=== PATIENT | female | born 1960 | race Caucasian/White ===

== ENCOUNTER 2019-08-28 11:18 | Inpatient (IN) ==
[2019-08-28] MEDS ORDERED: ZOFRAN IV ONE (11:23)
[2019-08-28] MEDS ORDERED: TORADOL IV ONE (11:23)
--- NOTE | 2019-08-28 11:52 | PROVIDER DOCUMENTATION ---
This chart was entered by Reva Bill Scribe, acting as scribe for Erlin Fraire MD. HPI-Female /OB/Breast - General Chief Complaint: Flank Pain Stated Complaint: R flank pain Time Seen by Provider: 08/28/19 11:23 Source: reports: patient Allergies/Adverse Reactions: Patient Allergies Allergy/AdvReac Type Severity Reaction Status Date / Time barium iodide [Barium Iodide] Allergy Mild RASH Verified 06/02/18 03:46 bismuth subsalicylate Allergy Mild RASH Verified 06/02/18 03:46 codeine [Codeine] Allergy Mild RASH Verified 06/02/18 03:46 Penicillins Allergy Mild RASH Verified 06/02/18 03:46 Home Medications: Home Medication List Medication Instructions Recorded Confirmed Last Taken Type Gabapentin [Gralise] 600 mg PO TID 07/29/12 08/28/19 11/11/14 History Omeprazole [Prilosec] 20 mg PO DAILY 07/29/12 08/28/19 11/11/14 History Aspirin 81 mg PO DAILY 07/31/12 08/28/19 11/11/14 Rx Insulin Aspart [Novolog] 25 units SQ AC 03/17/18 08/28/19 Unknown History Insulin Glargine [Lantus] 45 units SQ BID 03/17/18 08/28/19 Unknown History Lisinopril 10 mg PO DAILY 03/17/18 08/28/19 Unknown History Oxybutynin [Ditropan] 10 mg PO DAILY 03/17/18 08/28/19 Unknown History Simvastatin 40 mg PO HS 03/17/18 08/28/19 Unknown History Acetaminophen [Arthritis Pain] 1 tab PO ORDERED PRN 08/28/19 08/28/19 Unknown History Diphenhydramine HCl [Allergy 2 tab PO BID 08/28/19 08/28/19 Unknown History Relief] - History of Present Illness-Female /OB Nature of Presenting Problem: 59yof presents to ED cc sharp right flank pain that radiates to right groin, decreased urine and dark urine since 9:30am. Pt rates pain /. Pt has hx of Peylonephritis, COPD, HTN, DM, chronic chest apin and hyperlipidemia. Pt denies N/V/D. Pt is afebrile upon exam. Pt also c/o cough to nursing staff. Does patient report she is ?: No Location of complaint: reports: right flank Radiation: reports: groin (right) Quality of Pain: reports: sharp Severity in ED: reports: moderate Onset/Duration: reports: just prior to arrival Timing: reports: still present Context/Activities at Onset: reports: light activity Vaginal Symptoms: reports: no symptoms Vaginal Bleeding Amount: None Urinary Symptoms: reports: retention Related Symptoms: reports: no symptoms Modifying Factors: worse with: movement, palpation, urinating Similar Symptoms Previously?: No Recently seen or treated by another doctor?: No Review of Systems - Adult - REVIEW OF SYSTEMS - ADULT Constitutional: reports: see HPI. denies: chills, fever, fatique Eyes: reports: no symptoms reported Ears, Nose, Mouth & Throat: reports: no symptoms reported Cardiovascular: reports: no symptoms reported Respiratory: reports: see HPI, cough Gastrointestinal: reports: see HPI. denies: diarrhea, nausea, vomiting Genitourinary: reports: see HPI, flank pain (right), urinary retention. denies: hematuria Musculoskeletal: reports: no symptoms reported Integumentary: reports: no symptoms reported Neurological: reports: no symptoms reported Psychiatric: reports: no symptoms reported Endocrine: reports: no symptoms reported Hematologic/Lymphatic: reports: no symptoms reported Allergic/Immunologic: reports: no symptoms reported All Other Systems: Reviewed and Negative Past History - Adult - PAST MEDICAL HISTORY-ADULT Review of Records: reports: Nursing Assessment Review, Medications Reviewed, Social history reviewed & non-contributory. Major Childhood Illnesses: reports: denies history Cardiovascular: reports: HTN, hyperlipidemia Respiratory: reports: COPD Gastrointestinal: reports: GERD Obstetrical/Gynecological: reports: denies history Genitourinary: reports: denies history Musculoskeletal: reports: arthritis Neurological: reports: TIA, other (neuropathy) Psychiatric: reports: denies history Endocrine/Immune: reports: Diabetes Other Conditions: reports: denies history - PRIOR SURGERIES/PROCEDURES Surgical/Procedure History: reports: appendectomy, hysterectomy, (x3), orthopedic (extremity) (right hand) - IMMUNIZATION STATUS Childhood Immunizations: See Nurse Assessment Flu Vaccine: See Nurse Assessment - FAMILY HISTORY Family History: reviewed, not pertinent - SOCIAL HISTORY Smoking: cigarettes, less than 1 pack/day Provider spent 3-5 mins advising pt. on dangers of tobacco.: Discussed manners to quit use, and f/u contacts for add'l counseling. Physical Exam-General - PHYSICAL EXAM-ADULT Initial Vital Signs Reviewed: Yes - CONSTITUTIONAL General Appearance: appears well, alert. negative: anxious, combative - EYES Eyes: PERRL/EOMI, pink conjunctivae - HEAD, EARS, NOSE, MOUTH & THROAT HENMT: normocephalic/atraumatic, moist mucous membranes. negative: angioedema - NECK Neck: normal inspection - RESPIRATORY Respiratory: chest non-tender, lungs clear, normal breath sounds. negative: rhonchi, stridor - CARDIOVASCULAR Cardiovascular: normal peripheral pulses, regular rate, rhythm, no edema. negative: bradycardia, tachycardia - GASTROINTESTINAL (ABDOMEN) Abdominal Exam: normal bowel sounds, soft, tenderness (RLQ,mild). negative: rigid, rebound - MUSCULOSKELETAL Back Exam: no vertebral tenderness, CVA tenderness (right) Extremity: normal range of motion, normal inspection, normal capillary refill. negative: deformity - SKIN Integumentary: normal color. negative: diaphoresis, jaundice - PSYCHIATRIC Psych/Mental Status: normal mood/affect, oriented x 3. negative: anxious, disheveled Progress - PLAN OF CARE/RESULTS Progress/Plan/Lab Results: Vital Signs - 8 hr 08/28/19 11:23 08/28/19 11:51 08/28/19 12:39 Temperature 98.9 F Pulse Rate 62 60 Respiratory Rate 22 18 Blood Pressure 175/80 205/114 163/80 O2 Sat by Pulse Oximetry 94 L 96 96 08/28/19 13:01 08/28/19 13:14 08/28/19 13:31 Temperature Pulse Rate 61 65 Respiratory Rate 18 18 Blood Pressure 143/71 145/101 O2 Sat by Pulse Oximetry 97 96 98 08/28/19 14:01 Temperature Pulse Rate 67 Respiratory Rate 19 Blood Pressure 134/70 O2 Sat by Pulse Oximetry 96 Laboratory Results - last 24 hr 08/28/19 08/28/19 08/28/19 11:41 11:41 11:41 WBC 10.76 RBC 5.14 Hgb 14.9 Hct 45.0 MCV 87.5 MCH 29.0 MCHC 33.1 RDW Std Deviation 12.5 Plt Count 248 MPV 11.7 H Immature Gran % (Auto) 0.0 Neut % (Auto) 68.3 Lymph % (Auto) 22.3 [place] % (Auto) 7.3 Eos % (Auto) 1.6 Baso % (Auto) 0.5 Immature Gran # (Auto) 0.00 Neut # (Auto) 7.35 H Lymph # (Auto) 2.40 [place] # (Auto) 0.79 H Eos # (Auto) 0.17 Baso # (Auto) 0.05 PT 12.8 INR 0.95 PTT (Actin FS) 29.3 Specimen Type Sample Site pH pCO2 pO2 HCO3 Base Excess Oxyhemoglobin ABG O2 Sat (Calculated) ABG O2 Saturation ABG Carboxyhemoglobin ABG Methemoglobin Robert Test A-a O2 Difference Total Hemoglobin Lactate Blood Gas Modality FiO2 % Sodium 129 L Potassium 4.4 Chloride 91 L Carbon Dioxide 28 Anion Gap 10 BUN 9 Creatinine 0.8 Estimated GFR/1.73 m2 > 60 BUN/Creatinine Ratio 11 Glucose 348 H Calculated Osmolality 271 Calcium 9.3 Total Bilirubin 0.16 L AST 14 ALT 13 Alkaline Phosphatase 118 H Creatine Kinase 51 Troponin T Total Protein 6.7 Albumin 4.1 Globulin 2.6 Albumin/Globulin Ratio 1.6 Plasma Lactate Urine Source Urine Color Urine Turbidity Urine pH Ur Specific [place] Urine Protein Ur Glucose (Stick) Ur Ketones (Stick) Urine Blood Urine Nitrite Urine Bilirubin Urobilinogen Dipstick Urine Leukocytes Urine WBC (Auto) Urine RBC (Auto) U Epithel Cells (Auto) Urine Bacteria (Auto) Urine Crystals Small Round Cells Urine Casts Urine Yeast-like Cells 08/28/19 08/28/19 08/28/19 11:41 11:41 11:55 WBC RBC Hgb Hct MCV MCH MCHC RDW Std Deviation Plt Count MPV Immature Gran % (Auto) Neut % (Auto) Lymph % (Auto) [place] % (Auto) Eos % (Auto) Baso % (Auto) Immature Gran # (Auto) Neut # (Auto) Lymph # (Auto) [place] # (Auto) Eos # (Auto) Baso # (Auto) PT INR PTT (Actin FS) Specimen Type Sample Site pH pCO2 pO2 HCO3 Base Excess Oxyhemoglobin ABG O2 Sat (Calculated) ABG O2 Saturation ABG Carboxyhemoglobin ABG Methemoglobin Robert Test A-a O2 Difference Total Hemoglobin Lactate Blood Gas Modality FiO2 % Sodium Potassium Chloride Carbon Dioxide Anion Gap BUN Creatinine Estimated GFR/1.73 m2 BUN/Creatinine Ratio Glucose Calculated Osmolality Calcium Total Bilirubin AST ALT Alkaline Phosphatase Creatine Kinase Troponin T < 0.010 Total Protein Albumin Globulin Albumin/Globulin Ratio Plasma Lactate 1.4 Urine Source CLEAN CATCH Urine Color ORANGE Urine Turbidity TURBID Urine pH 5.5 Ur Specific [place] 1.017 Urine Protein 50 A Ur Glucose (Stick) >1000 A Ur Ketones (Stick) NEGATIVE Urine Blood SMALL A Urine Nitrite POSITIVE A Urine Bilirubin NEGATIVE Urobilinogen Dipstick NORMAL Urine Leukocytes LARGE A Urine WBC (Auto) TNTC A Urine RBC (Auto) <10 U Epithel Cells (Auto) <10 Urine Bacteria (Auto) 4+ Urine Crystals NONE SEEN Small Round Cells NONE SEEN Urine Casts NONE SEEN Urine Yeast-like Cells 08/28/19 08/28/19 13:10 14:22 WBC RBC Hgb Hct MCV MCH MCHC RDW Std Deviation Plt Count MPV Immature Gran % (Auto) Neut % (Auto) Lymph % (Auto) [place] % (Auto) Eos % (Auto) Baso % (Auto) Immature Gran # (Auto) Neut # (Auto) Lymph # (Auto) [place] # (Auto) Eos # (Auto) Baso # (Auto) PT INR PTT (Actin FS) Specimen Type ARTERIAL Sample Site R BRACHIAL pH 7.38 pCO2 43 pO2 80 HCO3 24.6 Base Excess 0.0 Oxyhemoglobin 87.6 L* ABG O2 Sat (Calculated) 18.9 ABG O2 Saturation 97.1 ABG Carboxyhemoglobin 8.10 H* ABG Methemoglobin 1.6 H Robert Test NO A-a O2 Difference 16.0 Total Hemoglobin 15.3 Lactate 1.10 Blood Gas Modality ROOM AIR FiO2 % 21.0 Sodium Potassium Chloride Carbon Dioxide Anion Gap BUN Creatinine Estimated GFR/1.73 m2 BUN/Creatinine Ratio Glucose Calculated Osmolality Calcium Total Bilirubin AST ALT Alkaline Phosphatase Creatine Kinase Troponin T Total Protein Albumin Globulin Albumin/Globulin Ratio Plasma Lactate 1.2 Urine Source Urine Color Urine Turbidity Urine pH Ur Specific [place] Urine Protein Ur Glucose (Stick) Ur Ketones (Stick) Urine Blood Urine Nitrite Urine Bilirubin Urobilinogen Dipstick Urine Leukocytes Urine WBC (Auto) Urine RBC (Auto) U Epithel Cells (Auto) Urine Bacteria (Auto) Urine Crystals Small Round Cells Urine Casts Urine Yeast-like Cells Orders Category Date Time Status Cardiac Monitoring DIRECTED Care 08/28/19 11:24 Active IV Insertion ORDERED Care 08/28/19 11:24 Completed Notify MD of + Sepsis Screen NOW Care 08/28/19 11:24 Active CHEST-PORTABLE [RAD] Stat Exams 08/28/19 13:[address] RENAL STONE SEARCH [CT] Stat Exams 08/28/19 11:36 Completed ABG [RESP] Routine Lab 08/28/19 13:10 Completed BLOOD CULTURE [BLDCUL] Stat Lab 08/28/19 12:36 Results CBC WITH DIFF [HEME] Stat Lab 08/28/19 11:41 Completed CK PROFILE [SP CHEM] Stat Lab 08/28/19 11:41 Completed COMPREHENSIVE METABOLIC PANEL [CHEM] Stat Lab 08/28/19 11:41 Completed LACTATE, PLASMA [CHEM] Lab 08/28/19 14:22 Completed LACTATE, PLASMA [CHEM] Lab 08/28/19 17:30 Uncollected LACTATE, PLASMA [CHEM] Q3H Lab 08/28/19 11:41 Completed PROTIME WITH INR [COAG] Stat Lab 08/28/19 11:41 Completed PTT [COAG] Stat Lab 08/28/19 11:41 Completed TROPONIN T Stat Lab 08/28/19 11:41 Completed URINALYSIS W/POSS RFLX CULT [URINALYSIS] Stat Lab 08/28/19 11:55 Completed URINE CULTURE [RM] Routine Lab 08/28/19 11:55 Received URINE MANUAL MICROSCOPIC [URINALYSIS] Stat Lab 08/28/19 11:55 Completed Ketorolac [Toradol] Med 08/28/19 11:23 Discontinued 30 mg IV NOW ONE Levofloxacin 750 mg/D5w [Levaquin 750 mg/D5w] Med 08/28/19 12:50 Discontinued 750 mg in 150 ml IV NOW Ondansetron [Zofran] Med 08/28/19 11:23 Discontinued 4 mg IV STAT ONE Oxygen Device Stat Oth 08/28/19 11:24 Completed Transfer/Admit Order [TRANSFER] Routine Transfer 08/28/19 14:28 Ordered Result Diagrams: 08/28/19 11:41 08/28/19 11:41 - REASSESSMENT Reassessment #1 Time Reassessed: 13:00 Status: worsening Reassessment Comment: pateint noted to have apneic episodes with sats in 70's when sleeping - CT/MRI 1 CT Study: Renal Stone Impression: See EMR Report (IMPRESSION: 1.Moderate to prominent right-sided hy dronephrosis without a ureteral stone. This may be secondary to a recently passed stone. Short-term follow-up or urological consult recommended. 2.Constipation 3.Hysterectomy This exam was performed using automated exposure control, adjustment of mA or kV according to patient size, and/or use of i terative reconstruction technique. Electronically signed by Casper Ballesteros 08/28/2019 12:24 PM) - CONSULTS/PCP/HOSPITALIST Notification #1 *Consult/PCP/Hospitalist*: Ban BA, hospitalist service Time Discussed: 14:15 Reason/Comments: Dr. Martinez Consult Disposition: Admit Departure - Departure Date of Disposition Decision: 08/28/19 Time of Disposition Decision: 14:55 DIAGNOSIS: Apnea, Hypoxemia, COPD (chronic obstructive pulmonary disease) Urinary tract infection Qualifiers: Urinary tract infection type: site unspecified Hematuria presence: with hematuria Qualified Code(s): N39.0 - Urinary tract infection, site not specified; R31.9 - Hematuria, unspecified Disposition: ADMITTED INPATIENT 09 Certified Medical Emergency: Emergent Condition: Stable - Critical Care Note This patient required my direct & personal management of CC.: No Attestation - Physician/ ROXY Attestation Patient care was provided by Advanced Practice Provider:: No The physician spent face to face time with patient:: Yes Advanced Practice Provider documentation review:: Supervising physician onsite and consulted in the evaluation and care of this patient. The physician did have a face to face encounter with the patient. This chart was documented by the indicated scribe, (Reva Bill Scribe) and accurately reflects the services I performed and decisions made by me, Erlin Fraire MD, as attested by the provider's signature.
[2019-08-28 12:03] LABS: BASO# 0.05 X1000 (0.0-0.2); BASO% 0.5 % (0.0-0.8); EOS# 0.17 X1000 (0.0-0.7); EOS% 1.6 % (0.0-10.0); HEMOGLOBIN 14.9 g/dL (12.0-16.0); LYMPH% 22.3 % (20.5-51.1); MCHC 33.1 g/dL (33-37); MCV 87.5 FL (81-99); MONO# 0.79 X1000 (0.11-0.59); MONO% 7.3 % (1.7-9.3); MPV 11.7 FL (7.4-10.4); NEUT# 7.35 X1000 (1.4-6.5); NEUT% 68.3 % (42.2-75.2); PLT 248 X1000 (130-400); RBC 5.14 XMIL (4.2-5.4); RDW 12.5 % (11.5-14.5); WBC 10.76 X1000 (4.8-10.8)
[2019-08-28 12:10] LABS: INR 0.95; PROTIME 12.8 Seconds (11.0-16.0)
[2019-08-28 12:11] LABS: PTT 29.3 Seconds (22.3-41.8)
[2019-08-28 12:20] LABS: URINE SOURCE CLEAN CATCH
[2019-08-28 12:23] LABS: AGAP 10; ALB/GLOB RATIO 1.6; ALBUMIN 4.1 g/dL (3.5-5.0); ALKALINE PHOSPHATASE 118 U/L (32-104); BUN 9 mg/dL (8-22); CALCIUM 9.3 mg/dL (8.8-10.2); CHLORIDE 91 mmol/L (98-107); CK PROFILE 51 U/L (24-173); COSMO 271; CREATININE 0.8 mg/dL (0.5-0.9); ESTIMATED GFR > 60; GLUCOSE 348 mg/dL (70-104); GOT 14 U/L (10-30); GPT 13 U/L (10-36); POTASSIUM 4.4 mmol/L (3.5-5.1); SODIUM 129 mmol/L (136-145); TCO2 28 mmol/L (25-35); TOTAL BILIRUBIN 0.16 mg/dL (0.20-1.00); TOTAL PROTEIN 6.7 g/dL (6.3-8.3)
[2019-08-28 12:26] LABS: BILIRUBIN URINE NEGATIVE (NEGATIVE); BLOOD URINE SMALL (NEGATIVE); COLOR ORANGE; GLUCOSE URINE >1000 mg/dL (NEGATIVE); KETONE URINE NEGATIVE (NEGATIVE); LEUKOCYTES URINE LARGE (NEGATIVE); NITRITE URINE POSITIVE (NEGATIVE); PH URINE 5.5; PROTEIN URINE 50 mg/dL (NEGATIVE); SP GRAVITY URINE 1.017; TURBIDITY URINE TURBID (CLEAR); UROBILINOGEN URINE NORMAL (NORMAL)
--- NOTE | 2019-08-28 12:26 | Diag Imaging Result Doc PS360 ---
EXAM: CT RENAL STONE SEARCH HISTORY: right flank pain TECHNIQUE: CT abdomen and pelvis without contrast COMPARISON: None. FINDINGS: No calcified gallstones or adjacent inflammation. No focal hepatic abnormality identified on this noncontrasted exam. Normal spleen, pancreas, and adrenal glands. No left renal stone or left-sided hydronephrosis. Moderate to prominent right-sided hydronephrosis. No ureteral stone identified. No aortic aneurysm. Moderate to prominent atherosclerosis. There is stool throughout the colon. No inflammation about the cecum. No ascites. The uterus has been removed. Urinary bladder is not distended. There are multiple pelvic phleboliths. IMPRESSION: 1.Moderate to prominent right-sided hydronephrosis without a ureteral stone. This may be secondary to a recently passed stone. Short-term follow-up or urological consult recommended. 2.Constipation 3.Hysterectomy This exam was performed using automated exposure control, adjustment of mA or kV according to patient size, and/or use of iterative reconstruction technique. Electronically signed by Casper Ballesteros 08/28/2019 12:24 PM
[2019-08-28 12:37] LABS: UR EPITHELIAL CELLS <10 /HPF (<10); URINE BACTERIA 4+ /HPF; URINE RBC <10 /HPF (<10); URINE WBC TNTC /HPF (<10)
[2019-08-28 12:39] LABS: URINE CASTS NONE SEEN; URINE CRYSTALS NONE SEEN; URINE SMALL ROUND CELLS NONE SEEN
[2019-08-28] MEDS ORDERED: LEVAQUIN 750 MG/D5W 750 MG/150 ML IVPB IV ONE (12:50)
[2019-08-28 13:15] LABS: ALLEN TEST NO; BLOOD TYPE ARTERIAL; HCO3-(ACT) 24.6 mmoll (20.0-26.0); METHB 1.6 % (0.0-1.5); O2(CT) 18.9 mL/dL (15.0-23.0); PCO2(98.6) 43 mmHg (35-45); PO2(98.6) 80 mmHg (60-100); SAMPLE BLOOD; SAO2 97.1 % (95.0-100.0); THB 15.3 g/dL (11.5-17.4); pH(98.6) 7.38 (7.35-7.45)
[2019-08-28 13:20] LABS: MODALITY ROOM AIR; O2HB 87.6 % (95.0-99.0)
--- NOTE | 2019-08-28 13:21 | Diag Imaging Result Doc PS360 ---
EXAM: CHEST-PORTABLE 08/28/2019 HISTORY: sob TECHNIQUE: AP portable at 1313 COMMENT: There is no evidence of acute cardiac or pulmonary disease. Compared to 07/21/2019 there has been no significant change. IMPRESSION: No evidence of acute disease. Electronically signed by Kleber Loyola 08/28/2019 1:19 PM
[2019-08-28] MEDS ORDERED: TYLENOL PO PRN (15:12)
[2019-08-28] MEDS ORDERED: TYLENOL ARTHRITIS PO PRN (15:12)
[2019-08-28] MEDS ORDERED: ULTRAM PO PRN (15:29)
[2019-08-28] MEDS: NS 1,000 ML IV SCH ×2 (16:09→23:41)
[2019-08-28] MEDS: HUMALOG SUBQ SCH ×3 (17:28→22:51)
[2019-08-28] MEDS ORDERED: NORCO-5 PO PRN (17:36)
[2019-08-28] MEDS: MORPHINE IV PRN (18:43)
[2019-08-28] MEDS ORDERED: [UNRECOGNIZED DRUG - REMARK] PO SCH (21:00)
--- NOTE | 2019-08-28 21:35 | HISTORY AND PHYSICAL ---
PRIMARY CARE PHYSICIAN: Dr. Chica Davies. CHIEF COMPLAINT: Right flank pain radiating to the right groin with decreased urine output and dark urine that began at 9:30 this morning as a sudden onset. HISTORY OF PRESENTING ILLNESS: This is a 59-year-old female who presents to [facility], with complaints of sharp right flank pain that radiates to the right groin with decreased urine and dark urine that began around 9:30 a.m. She rated the pain a 10/10. Denied any nausea, vomiting, diarrhea. Her workup showed a sodium of 129 and glucose of 348, but she is a known diabetic type 2. We did a renal CT that showed a moderate to prominent right-sided hydronephrosis without a ureteral stone that may be secondary to a recently passed stone. Her urinalysis showed positive nitrites, sij-xlsmbcek-ss-count white blood cells and 4+ bacteria, and so she will be admitted for further evaluation and treatment. PAST MEDICAL HISTORY: Hypertension, hyperlipidemia, diabetes type 2, osteoarthritis and GERD. PAST SURGICAL HISTORY: , hysterectomy and right hand 3rd digit surgery. FAMILY HISTORY: Her father had diabetes and CHF and in his 70s. Mother has COPD. SOCIAL HISTORY: She currently lives in an assisted living facility. Smokes a half a pack of cigarettes a day and has done so for 30+ years and denies any alcohol or illicit drug use. ALLERGIES: Barium, bismuth, codeine and penicillin. HOME MEDICATIONS: She takes Tylenol Arthritis 650 mg as directed p.r.n., aspirin 81 mg p.o. daily, diphenhydramine 25 mg 2 tablets p.o. b.i.d., Relief 600 mg p.o. t.i.d., NovoLog 25 units subcutaneously before meals, Lantus 45 units subcutaneous b.i.d., lisinopril 10 mg p.o. daily, Prilosec 20 mg p.o. daily, Ditropan 10 mg p.o. daily and simvastatin 40 mg p.o. at bedtime. LABORATORY DATA: Showed a white blood cell count of 10.76, hemoglobin 14.9, hematocrit 45, platelets 248. PT and INR 12.8 and 0.95. ABG showed a pH of 7.38, pCO2 of 43, pO2 of 80, and bicarb of 24.6, and this is on room air. Sodium 129, potassium 4.4, chloride 91, CO2 28, BUN of 9, creatinine 0.8, glucose 348. Cardiac enzyme is negative, plasma lactate of 1.4. Urinalysis showed positive nitrites, afa-jtzowoig-km-count white blood cells, 4+ bacteria. CT of renal showed moderate to prominent right-sided hydronephrosis without a ureteral stone (may be secondary to a recently passed stone with short-term follow-up or urological consult recommended), constipation and hysterectomy. Chest x-ray showed no evidence of acute disease. REVIEW OF SYSTEMS: She denied any fever, chills, blurred vision, dizziness, chest pain, coughing, or shortness of breath. She had right flank pain radiating to her right groin, but denied any abdominal pain, nausea, vomiting, constipation, diarrhea, or burning or hurting with urination. PHYSICAL EXAMINATION: VITAL SIGNS: On arrival she had a temperature of 98.9, pulse 62, respirations 22, blood pressure 175/80, saturating 94% on room air. It is noted per nursing documentation that she received Toradol 30 mg IV, and she was noted to have dropped her O2 saturation between 85% and 89% on room air. Then about 2 or 3 minutes later, her saturation went down to 76% on room air, and that is when we had ordered some ABGs and O2, and she is currently saturating 95% to 97% on 3 L. GENERAL: This is a 59-year-old female who is lying in the bed and answers questions appropriately. HEENT: Normocephalic, atraumatic. Normal ENT inspection. Oropharynx and nares are clear. EYES: Pupils are equal, round, reactive to light and accommodation. Extraocular movements are intact. NECK: Normal inspection, normal range of motion. LUNGS: Clear to auscultation bilaterally with equal lung expansion and chest wall movement. HEART: Regular rate and rhythm. No murmurs, rubs, or gallops. ABDOMEN: Soft, nontender, nondistended. Bowel sounds are present x4 quadrants. She does have some right CVA tenderness to palpation. NEUROLOGICAL: The cranial nerves II-XII appear grossly intact. MUSCULOSKELETAL: She has 5/5 strength x4 extremities. ASSESSMENT: 1. Urinary tract infection. 2. Hyponatremia. 3. Diabetes type 2, uncontrolled, with hyperglycemia. 4. Moderate to prominent right-sided hydronephrosis without a ureteral stone. PLAN: She will be admitted to the medical unit, placed on telemetry, diabetic diet. We will consult Urology. Blood cultures and urine culture are pending. We will place on normal saline at 125 mL an hour, Levaquin 750 mg IV every 24 (she received the first dose in the emergency room). We will give her tramadol 50 mg p.o. every 6 hours p.r.n. Continue home medications as previously identified. Place on pattern blood sugars with sliding-scale insulin. Further orders after seen by attending and by business solutions consultant. Dictated by JASON Ruiz for Pepe Martinez MD cc: JASON Ruiz MD
[2019-08-28] MEDS: LOVENOX SUBQ SCH (21:45)
[2019-08-28] MEDS: ZOCOR PO SCH (21:45)
[2019-08-28] MEDS: MIRALAX PO SCH (21:45)
[2019-08-28] MEDS: GRALISE PO SCH (21:45)
[2019-08-28] MEDS: LANTUS INSULIN SUBQ SCH (22:51)
[2019-08-28] MEDS: ZOFRAN IV PRN (23:41)
--- NOTE | 2019-08-29 04:14 | HISTORY AND PHYSICAL ---
Patient came in with pain. She has a history of urinary retention. She has had decreased urine, dark urine, and right groin pain. Her CT scan did not clearly show a stone, but she did have significant hydronephrosis on the right with a possible recent stone. She is also constipated. In any case, she was admitted for acute urinary retention and stone hydronephrosis. Urology will be consulted. We will continue IV fluids. We will continue empiric antibiotics. She does not appear to be septic at this point. She did have some sort of reaction to Toradol, but Ultram and [place] has not worked for pain control so we will institute morphine and see how she does. This is a buyz-wo-bydc encounter note with JASON Ruiz. cc: Pepe Martinez MD
[2019-08-29] MEDS: HUMALOG SUBQ SCH ×7 (06:00→22:57)
[2019-08-29] MEDS: ZOFRAN IV PRN ×2 (06:40→17:59)
[2019-08-29 07:27] LABS: BASO# 0.03 X1000 (0.0-0.2); BASO% 0.2 % (0.0-0.8); EOS# 0.01 X1000 (0.0-0.7); EOS% 0.1 % (0.0-10.0); HEMATOCRIT 41.2 % (37.0-47.0); HEMOGLOBIN 13.3 g/dL (12.0-16.0); IMM GRAN# 0.05 X1000 (0.0-0.04); IMM GRAN% 0.3 % (0.0-0.5); LYMPH# 1.42 X1000 (1.2-3.4); LYMPH% 7.8 % (20.5-51.1); MCHC 32.3 g/dL (33-37); MCV 89.8 FL (81-99); MONO# 1.22 X1000 (0.11-0.59); MONO% 6.7 % (1.7-9.3); MPV 11.4 FL (7.4-10.4); NEUT# 15.48 X1000 (1.4-6.5); NEUT% 84.9 % (42.2-75.2); PLT 193 X1000 (130-400); RBC 4.59 XMIL (4.2-5.4); RDW 12.4 % (11.5-14.5); WBC 18.21 X1000 (4.8-10.8)
[2019-08-29] MEDS: NS 1,000 ML IV SCH ×5 (07:27→23:14)
[2019-08-29 07:59] LABS: CALCIUM 8.5 mg/dL (8.8-10.2); CREATININE 1.3 mg/dL (0.5-0.9); POTASSIUM 4.9 mmol/L (3.5-5.1)
--- NOTE | 2019-08-29 08:36 | CONSULTATION ---
DATE OF CONSULTATION: 08/28/2019 CHIEF COMPLAINT: Right flank pain and lower pelvic pain. HISTORY OF PRESENT ILLNESS: Ms. Porter is a 59-year-old with type 2 diabetes, hyperlipidemia, chronic obstructive pulmonary disease, hypertension, and chronic pain, who presents in consultation regarding excruciating right flank pain that radiates into her groin as well as difficulty with urination. The patient feels that she has been having significant lower pelvic pain, and burning with urination. She also describes worsening right flank pain which started around 9:30 this morning. She rates the pain as a 10/10. She states the pain radiates into her lower pelvis. She denies any fevers or chills. She states she has a history of pyelonephritis that was treated in [place] several years ago, and was told that she had hydronephrosis at that time. She says she never presented for followup. The patient states that she has had some prior infection of the urinary system as well as occasional right flank pain. She denies history of kidney stones or prior kidney or bladder surgery. The patient states she goes frequent to the bathroom, and goes through multiple pads a day due to urinary incontinence. She feels that she leaks urine when she coughs as well as with the urgency of urination. The patient was admitted to the hospitalist for optimization of her flank pain. The patient had a CT scan done in the emergency room which showed right hydronephrosis all the way to the bladder with a thickened bladder. The patient had bladder scans done on the floor which showed no urine inside of her bladder. The patient states she has been going to the bathroom frequently. The patient's renal function was normal as well as having a normal white blood cell count on admission. Urology was consulted for further recommendations. ALLERGIES: 1. Barium and iodine. 2. Bismuth. 3. Salicylates. 4. Codeine. 5. Penicillin. HOME MEDICATIONS: 1. Gabapentin 600 mg t.i.d. 2. Prilosec 20 mg p.o. daily. 3. Aspirin 81 mg p.o. daily. 4. Insulin aspart 25 units in the morning. 5. Insulin glargine 45 units b.i.d. 6. Lisinopril 10 mg p.o. daily. 7. Ditropan 10 mg daily. 8. Simvastatin 40 mg daily. 9. Acetaminophen as needed for pain. 10. Benadryl. PAST MEDICAL HISTORY: 1. Hypertension. 2. Hyperlipidemia. 3. COPD. 4. Gastroesophageal reflux disease. 5. History of TIA. 6. Peripheral neuropathy. 7. Type 2 diabetes. 8. History of pyelonephritis. PAST SURGIAL HISTORY: 1. Appendectomy. 2. Hysterectomy. 3. C-sections x3. 4. Right hand surgery. FAMILY HISTORY: Denies family history of malignancies. SOCIAL HISTORY: Patient smokes approximately 1/2 pack of cigarettes a day. REVIEW OF SYSTEMS: The patient denies any fevers, chills, nausea, or vomiting. Her major complaint is regarding right flank pain. She also has lower pelvic pain, and feels that she is having difficulty with urination. She denies any constipation. The patient has persistent urinary incontinence. The rest of the 12 point review of systems are negatives except in HPI. VITAL SIGNS: Temperature 98.5 degrees, heart rate 64, blood pressure 156/53, and oxygen saturation 99% on room air. General: No acute distress. Resting comfortably in bed. Alert and oriented x3. Slight dishevelled appearance. Neck: Trachea midline. No palpable masses. HEENT: Normocephalic, atraumatic. Pupils equal, round, and reactive to light. Poor dentition. Cardiovascular: Regular rate and rhythm. No evidence of lower extremity edema. Respiratory: Good respiratory effort without audible wheezing or rales. Abdomen: Soft, nontender, and nondistended. No palpable masses or hepatosplenomegaly. : Slight suprapubic tenderness. Moderate CVA tenderness on the right. No palpable distended bladder. Skin: No obvious skin rashes. Musculoskeletal: Moves all extremities. Neurologic: Gross motor and sensory intact. LABORATORY: White blood cell count 10.8, hemoglobin 14.9, hematocrit 45.0, and platelets 248,000. Sodium 129, potassium 4.4, chloride 91, bicarb 28, BUN 9, creatinine 0.8, glucose 348, calcium 9.3, and alkaline phosphate 118. Urinalysis shows greater than 1000 glucose, small amount of blood, nitrite positive, large amount of leukocytes with 4+ bacteria. CT scan images reviewed. CT noncontrast due to her marked flank pain, which showed moderate right- sided hydronephrosis almost to the bladder itself. No obvious obstruction seen in the ureter. The patient has some constipation. The patient's bladder was decompressed and slightly thickened. ASSESSMENT AND PLAN: Ms. Porter is a 59-year-old who presents for evaluation of right flank pain with CT scan evidence of pyelonephritis. The patient has a history of type 2 diabetes, hypertension, hyperlipidemia, COPD, osteoarthritis, and history of prior pyelonephritis, which was described as having "sepsis". Patient's vital signs are stable on admission. She is not tachycardic or hypotensive. The patient is afebrile. White blood cell count is 10.8, creatinine is stable at 0.8. The patient seems to be clinically stable. Currently, she continues to complain of 10/10 flank pain. No obvious stones were seen on CT scan. The patient's bladder was decompressed. She describes long history of urgency and stress urinary incontinence. The patient has not had stones previously, not sure if she has recently passed a stone. She does describe a long history of right hydronephrosis which was diagnosed approximately 4 years ago. She states she has had intermittent right flank pain since then. Concerns arise that patient may have had a ureteral stricture leading to her symptoms. I cannot see anything inside the bladder with a noncontrast scan. She did have some blood in her urine earlier, but denies any gross blood at home. She is a chronic smoker and at higher risk of bladder malignancy leading to obstruction. In talking with her due to her persistent flank pain, I told her if her pain persisted into tomorrow we may need to consider cystoscopy with bilateral retrograde pyelograms and possible right ureteral stent placement. Risks, benefits, and alternatives to procedure were discussed with the patient. The patient will think about it overnight, and we will talk with her again in the morning. cc: Rudi Acosta MD [facility]
[2019-08-29] MEDS ORDERED: PRINIVIL PO SCH (09:00)
[2019-08-29] MEDS: MORPHINE IV PRN (09:41)
--- NOTE | 2019-08-29 10:46 | PROGRESS NOTE ---
DATE: 08/29/2019 SUBJECTIVE: The patient states that her flank pain has improved overnight. She denies any dysuria or hematuria. She is still having some urinary urgency and frequency, which is chronic for her. Her major complaint today is regarding feeling weakness as well as nausea. She states that her right hip is hurting her from lying on it last night. She remains afebrile. One episode of tachycardia up to 103 last night. Clinically, the patient's pain seems to be better controlled and she denies significant pain this morning. OBJECTIVE: Vital signs: Temperature 97.7 degrees, heart rate 89, blood pressure 115/84, oxygen 98% on room air. General no acute distress, resting on the bed, alert and oriented x3. Respiratory: Good respiratory effort without audible wheeze or rales. Cardiovascular: Regular rate and rhythm. Abdomen soft, nontender, nondistended. no suprapubic tenderness. No CVA tenderness. MUSCULOSKELETAL: Moving all extremities. LABS: White blood cell count 18.2, hemoglobin 13.3, hematocrit 41.2, platelets 193,000. Glucose 220, Creatinine 1.3. PLAN: Ms. Porter is a 59-year-old with hypertension, hyperlipidemia, type 2 diabetes, osteoarthritis, gastroesophageal reflux disease who presents in consultation regarding right hydronephrosis and likely infection. The patient remains afebrile. She did have a significant increase in her white blood cell count up to 18, today from 10 yesterday. Creatinine has also increased from 0.8 to 1.3 I talked with her this morning and I recommended cystoscopy and right ureteral stent placement, bilateral retrograde pyelograms. Discussed with her that she may have some bleeding after surgery. The patient continues to have occasional urgency and frequency, but I think she feels better this morning from our discussion. She denies any significant right flank pain. She has complained of significant fatigue and nausea. I think this could potentially be related to her infection. Her creatinine and WBC have increased this morning. I told her that bypassing the obstruction may help with her symptoms. The patient is NPO in preparation for surgery. Discussed with the patient and her daughter at bedside regarding treatment and they elected to proceed. We will plan to do this later today. cc: MD MADISON Gudino
[2019-08-29] MEDS ORDERED: XYLOCAINE-MPF 2% ONE (11:45)
[2019-08-29] MEDS ORDERED: DIPRIVAN 1% ONE (11:45)
[2019-08-29] MEDS ORDERED: QUELICIN (DOSE) ONE ×2 (11:46→12:26)
[2019-08-29] MEDS ORDERED: ZOFRAN ONE ×2 (11:49→13:12)
[2019-08-29] MEDS ORDERED: DECADRON ONE (11:52)
[2019-08-29] MEDS ORDERED: GENTAMICIN 80 MG/NS 80 MG/50 ML IVPB ONE (12:06)
[2019-08-29] MEDS ORDERED: FENTANYL ONE (12:29)
[2019-08-29] MEDS ORDERED: AMIDATE ONE (13:02)
[2019-08-29] MEDS: LEVAQUIN 500 MG/D5W 500 MG/100 ML IVPB IV SCH (16:05)
[2019-08-29] MEDS: GRALISE PO SCH ×3 (17:52→21:12)
[2019-08-29] MEDS: ASPIRIN PO SCH (17:52)
[2019-08-29] MEDS: DITROPAN PO SCH (17:52)
[2019-08-29] MEDS: PRILOSEC PO SCH (17:53)
[2019-08-29] MEDS: MIRALAX PO SCH (18:13)
[2019-08-29] MEDS: LANTUS INSULIN SUBQ SCH ×2 (18:40→23:03)
[2019-08-29] MEDS: ZOCOR PO SCH (21:12)
[2019-08-29] MEDS: PERIDEX MT SCH (21:12)
[2019-08-29] MEDS: LOVENOX SUBQ SCH (23:04)
--- NOTE | 2019-08-30 03:36 | PROGRESS NOTE ---
DATE: 08/29/2019 SUBJECTIVE: The patient has no major complaints. She had a cystoscopy today with stent placement. OBJECTIVE: Vital signs: Blood pressure is 134/108, heart rate 74, respiratory 17, temperature 97.8 degrees. Cardiovascular: Regular rate and rhythm. Pulmonary: Bilateral breath sounds, clear to auscultation. Gastrointestinal: Soft, nontender, nondistended. Bowel sounds are positive. LABORATORY DATA: White count is 18, which is a big jump, H H 13 and 41, platelets 193,000. Sodium 132, creatinine went up to 1.3. Glucose of 241. Her urine is growing out a gram-negative sofy. PROBLEM LIST: 1. Right hydronephrosis, possibly related to stone versus other process. Dr. Acosta is following, she has undergone cystoscopy with right ureteral placement. I am still waiting on the report. We will continue supportive measures. 2. Gram-negative sofy urinary tract infection. We will continue antibiotics. 3. Acute kidney injury. May be related to some of her medications. Hold her lisinopril. Continue hydration and follow. She did get some Toradol. She is currently on Levaquin. We will continue that for now. 4. Type 2 diabetes. We will continue her Lantus and follow closely. DISPOSITION: Pending her clinical status. We will continue to follow her closely. cc: Pepe Martinez MD
[2019-08-30] MEDS: HUMALOG SUBQ SCH ×7 (06:39→22:36)
[2019-08-30 06:43] LABS: BASO# 0.02 X1000 (0.0-0.2); BASO% 0.1 % (0.0-0.8); EOS# 0.01 X1000 (0.0-0.7); EOS% 0.1 % (0.0-10.0); HEMATOCRIT 37.8 % (37.0-47.0); HEMOGLOBIN 11.9 g/dL (12.0-16.0); IMM GRAN# 0.03 X1000 (0.0-0.04); IMM GRAN% 0.2 % (0.0-0.5); LYMPH# 2.13 X1000 (1.2-3.4); LYMPH% 12.4 % (20.5-51.1); MCH 28.4 PG (27-31); MCHC 31.5 g/dL (33-37); MCV 90.2 FL (81-99); MONO# 1.65 X1000 (0.11-0.59); MONO% 9.6 % (1.7-9.3); MPV 12.3 FL (7.4-10.4); NEUT% 77.6 % (42.2-75.2); PLT 180 X1000 (130-400); RBC 4.19 XMIL (4.2-5.4); RDW 12.5 % (11.5-14.5); WBC 17.14 X1000 (4.8-10.8)
[2019-08-30 07:12] LABS: AGAP 9; BUN 13 mg/dL (8-22); CALCIUM 8.4 mg/dL (8.8-10.2); CHLORIDE 94 mmol/L (98-107); COSMO 265; CREATININE 0.8 mg/dL (0.5-0.9); ESTIMATED GFR > 60; GLUCOSE 307 mg/dL (70-104); POTASSIUM 4.7 mmol/L (3.5-5.1); SODIUM 126 mmol/L (136-145); TCO2 23 mmol/L (25-35)
[2019-08-30] MEDS: GRALISE PO SCH ×3 (08:25→22:30)
[2019-08-30] MEDS: LANTUS INSULIN SUBQ SCH ×2 (08:25→22:36)
[2019-08-30] MEDS: PERIDEX MT SCH ×2 (09:14→22:30)
[2019-08-30] MEDS: DITROPAN PO SCH (09:14)
[2019-08-30] MEDS: PRILOSEC PO SCH (09:14)
[2019-08-30] MEDS: ASPIRIN PO SCH (09:14)
[2019-08-30] MEDS: MIRALAX PO SCH ×2 (09:14→09:15)
[2019-08-30] MEDS: NS 1,000 ML IV SCH ×3 (09:19→22:30)
--- NOTE | 2019-08-30 11:50 | Diag Imaging Result Doc PS360 ---
EXAM: CHEST-2 VIEWS INDICATION: hypoxia TECHNIQUE: 2 views COMPARISON: 08/28/2019 FINDINGS: The lungs remain grossly clear. No new consolidation is identified. The cardiac silhouette is unremarkable. IMPRESSION: Stable chest with no definite acute pathology by plain radiograph. Electronically signed by Derek Valladares 08/30/2019 11:47 AM
[2019-08-30] MEDS: LEVAQUIN 500 MG/D5W 500 MG/100 ML IVPB IV SCH (12:15)
--- NOTE | 2019-08-30 13:37 | PROGRESS NOTE ---
DATE: 08/30/2019 SUBJECTIVE: No acute events overnight. The patient was taken to the operating room yesterday for cystoscopy, bilateral retrograde pyelograms and right ureteral stent placement. The patient states her pain in her flank has improved significantly since the procedure yesterday. She remains afebrile. She had a T-max of 100.5 degrees yesterday after surgery but has been afebrile since then. The patient is without tachycardia or hypertension. The patient has had good drainage through her urethral catheter. She denies any bladder spasms or leakage around the catheter. She has been tolerating a diet. OBJECTIVE: Vital signs: Temperature 98.4 degrees, heart rate 74, blood pressure 116/62 oxygenation 100% on nasal cannula 2 L. General: Alert and oriented x3. Respiratory: Good respiratory effort with slight wheezing with productive cough. Abdomen: Soft, nontender, nondistended. No palpable masses or hepatosplenomegaly. : No suprapubic tenderness. No CVA tenderness. Urethral catheter in place draining clear yellow urine. LABS: White blood cell count 17.1, hemoglobin 11.6, hematocrit 37.8, and platelets 180,000. Sodium 126, potassium 4.7, chloride 94, bicarb 23, BUN 13, creatinine 0.8, glucose 307. Urine culture growing E. coli which is sensitive to amikacin, Ancef, gentamicin, Levaquin, Macrobid, tobramycin and Zosyn. Blood cultures are negative to date. ASSESSMENT AND PLAN: Mrs. Porter is a 59-year-old with hypertension, hyperlipidemia, type 2 diabetes, osteoarthritis, gastroesophageal reflux disease, who presents in consultation regarding right hydronephrosis and likely right pyelonephritis. The patient became hypotensive yesterday with blood pressure in the high 80s with increasing creatinine and white blood cell count. The patient was taken to the operating room where she underwent cystoscopy and right ureteral stent placement, had a large amount of sediment and pus return from the collecting system. The patient has remained afebrile since then. White blood cell counts are slowly downtrending at 17, creatinine is back to normal at 0.8. The patient overall seems to be doing better. She denies any pain, nausea or fatigue this morning. We will plan to remove her Segundo catheter. Encouraged her to be ambulatory. Diet as tolerated. Continue on antibiotics. Culture is sensitive to Levaquin which she has been receiving. I gave her a dose of gentamicin yesterday in the operating room prior to her surgery. We will continue to monitor from a urologic standpoint. Please call with questions or concerns. cc: Rudi Acosta MD [facility]
[2019-08-30] MEDS: ZOFRAN IV PRN ×2 (15:16→18:46)
[2019-08-30] MEDS: MORPHINE IV PRN (17:11)
--- NOTE | 2019-08-30 18:30 | OPERATIVE NOTE ---
PROCEDURE DATE: 08/29/2019 PREOPERATIVE DIAGNOSES: 1. Urinary tract infection. 2. Right hydronephrosis. POSTOP DIAGNOSIS: 1. Urinary tract infection. 2. Right hydronephrosis. PROCEDURE PERFORMED: 1. Cystoscopy, bilateral retrograde pyelograms. 2. Right ureteral stent placement. SURGEON: Rudi Acosta MD. CLIENT TECHNOLOGIES SPECIALIST: None. COMPLICATIONS: None. BLOOD LOSS: Minimal. DRAINS: A 6 x 22 cm right ureteral stent ANESTHESIA: General. INDICATIONS FOR PROCEDURE: Mr. Porter is a 59-year-old who presented to the emergency room on 08/28/2019 complaining of right flank pain and urinary frequency. CT scan was obtained which showed right hydronephrosis with no obstructing lesions or stones. The patient's bladder was thickened and decompressed. The patient had a urinalysis sent which showed a large amount of bacteria. White blood cell count was 10 and creatinine 0.8. She was admitted for hydronephrosis and pain and likely urinary tract infection. This morning, patient developed nausea and fatigue. White blood cell count increased up to 18.2, creatinine 1.3. The patient was acutely hypotensive and was taken to the operating room for right ureteral stent. I discussed with her that she may get sicker after stent placement and discussed with the role of stent in draining her collecting system and decompressing the infection. After thorough discussion with the patient and her daughter, they elected to proceed. DESCRIPTION OF PROCEDURE: After informed consent obtained the patient brought to the operating room, placed on the table in supine position. The patient received preoperative antibiotics and underwent LMA placement. She was then positioned in dorsal lithotomy position, was prepped and draped in usual sterile fashion. A preoperative time-out was performed with all parties in the room including anesthesia, surgical, nursing staff. At which point I inserted a 21-Telugu cystourethroscope through the urethra showing normal caliber urethra, no evidence stricture disease or papillary lesions. Inside the bladder the entirety of the bladder was inspected. There was no diverticulum, cellules or papillary lesions. There were some erythematous changes throughout the bladder concurrent with active urinary tract infection. Both ureteral orifices visualized. The left ureteral orifice was slightly more patent. The right ureteral orifice seemed to be slightly narrowed likely from her ureteral edema. The patient's bladder was irrigated multiple times and drained to remove any urine from her bladder. Retrograde pyelogram was performed the left side which showed a normal collecting system with no evidence of obstruction or hydronephrosis. Postdrainage film good drainage seen from the collecting system. Attention was then placed to the right side. I attempted to place a open catheter into the right ureteral orifice and inject Omnipaque, however was a large amount of purulence that returned with light pressure on retrograde pyelogram. The decision was made to not perform dedicated retrograde pyelogram due to active infection returning from the collecting system. ZIPWire was inserted through the open-ended catheter up into the collecting system, the catheter was removed and a 6 x 22 cm stent was advanced over the wire up into the kidney with good curl in the kidney, endoscopically visualized in the bladder. A large amount of sediment and what appeared to be pus-like material returned from the collecting system. This irrigated out of the bladder. The patient's bladder was left full and a 16-Telugu Segundo catheter inserted, placed to gravity drainage and inflated with 10 mL sterile water. The patient will be transferred back to the floor for observation and will continue on IV antibiotics and follow up her urine culture which is growing gram-negative rods. We will continue to monitor from a urologic standpoint. Please call with questions, concerns. cc: Rudi Acosta MD [facility]
[2019-08-30] MEDS: ZOCOR PO SCH (22:30)
[2019-08-30] MEDS: LOVENOX SUBQ SCH (22:30)
[2019-08-30] MEDS: REGLAN IV SCH (22:36)
--- NOTE | 2019-08-30 23:39 | PROGRESS NOTE ---
DATE: 08/30/2019 SUBJECTIVE: Patient has no major complaints. OBJECTIVE: Vital signs: Blood pressure is 156/100, heart rate 72, respiratory rate 20, temperature 99.3 degrees. Cardiovascular: Regular rate and rhythm. Pulmonary: Bilateral breath sounds. Clear to auscultation. GI: Soft, nontender, nondistended. Bowel sounds are positive. LABORATORY DATA: White count 17, hemoglobin and hematocrit 11 and 37, platelets 180,000. Sodium is 126, BUN and creatinine 13 and 0.8. PROBLEM LIST: 1. Right hydronephrosis, status post stent placement. We will continue to monitor closely. She has a Escherichia coli urinary tract infection, but it is sensitive to Levaquin. 2. Acute kidney injury. Will continue treatment. Overall, she has improved. Her white count is still fairly high. We will continue gentle hydration. Her sugars are not really well controlled either. 3. Hyponatremia. We will have to continue to monitor that closely and follow. DISPOSITION: Anticipate discharge soon, but today she just feels not well. cc: Pepe Martinez MD
[2019-08-31] MEDS: NS 1,000 ML IV SCH ×4 (01:45→18:30)
[2019-08-31] MEDS: REGLAN IV SCH ×3 (05:31→22:00)
[2019-08-31] MEDS: HUMALOG SUBQ SCH ×9 (07:01→22:16)
[2019-08-31 07:11] LABS: BASO# 0.02 X1000 (0.0-0.2); BASO% 0.2 % (0.0-0.8); EOS# 0.02 X1000 (0.0-0.7); EOS% 0.2 % (0.0-10.0); HEMATOCRIT 38.4 % (37.0-47.0); HEMOGLOBIN 12.3 g/dL (12.0-16.0); IMM GRAN# 0.03 X1000 (0.0-0.04); IMM GRAN% 0.2 % (0.0-0.5); LYMPH# 2.66 X1000 (1.2-3.4); LYMPH% 20.2 % (20.5-51.1); MCH 28.9 PG (27-31); MCV 90.1 FL (81-99); MONO# 1.56 X1000 (0.11-0.59); MONO% 11.9 % (1.7-9.3); MPV 12.1 FL (7.4-10.4); NEUT# 8.85 X1000 (1.4-6.5); NEUT% 67.3 % (42.2-75.2); PLT 199 X1000 (130-400); RBC 4.26 XMIL (4.2-5.4); RDW 12.4 % (11.5-14.5); WBC 13.14 X1000 (4.8-10.8)
[2019-08-31 07:33] LABS: AGAP 10; BUN 9 mg/dL (8-22); CALCIUM 8.7 mg/dL (8.8-10.2); CHLORIDE 99 mmol/L (98-107); COSMO 271; CREATININE 0.7 mg/dL (0.5-0.9); ESTIMATED GFR > 60; GLUCOSE 175 mg/dL (70-104); POTASSIUM 4.4 mmol/L (3.5-5.1); SODIUM 134 mmol/L (136-145); TCO2 25 mmol/L (25-35)
--- NOTE | 2019-08-31 08:12 | Diag Imaging Result Doc PS360 ---
EXAM: CHEST-2 VIEWS INDICATION: hypoxia TECHNIQUE: 2 views COMPARISON: 08/30/2019 FINDINGS: The lungs appear grossly clear except for perhaps mild atelectasis at the posterior lung bases. Cardiac silhouette is stable. IMPRESSION: Suggestion of mild posterior basilar atelectasis. Stable chest, otherwise. Electronically signed by Derek Valladares 08/31/2019 8:09 AM
--- NOTE | 2019-08-31 09:04 | PROGRESS NOTE ---
DATE: 08/31/2019 SUBJECTIVE: No acute events overnight. The patient complained of some nausea this morning. It sounds like she has vomited once or twice over the past 24 hours. The patient denies any flank or abdominal pain. She states she feels nauseated and slightly fatigued. Temperature max was 100 degrees this morning at 6 a.m. She denies any warmth or subjective fevers or chills. The patient states she is up to the chair but has had minimal p.o. intake. She states she has been voiding without issue and denies any straining to urinate. OBJECTIVE: Vital Signs: Temperature 100.0 degrees, heart rate 84, blood pressure 154/80, oxygen saturation 95% on room air. General: No acute distress. Resting comfortably in a wheelchair. Respiratory: Good respiratory effort with slight wheezing at the bases. Abdomen: Soft, nontender, nondistended. : No suprapubic tenderness. No CVA tenderness. Musculoskeletal: Moving all extremities. Labs: White blood cell count 13.1, hemoglobin 12.3, hematocrit 38.4, platelets 199,000. Sodium 134, potassium 4.4, chloride 99, bicarb 25, BUN 9, creatinine 0.7, glucose 175, calcium 8.7. Urine culture, E. coli that is sensitive to amikacin, Ancef, gentamicin, Levaquin, Macrobid, tobramycin, and Zosyn. ASSESSMENT AND PLAN: Ms. Cyr is a 59-year-old who is postop day 2 from cystoscopy and right ureteral stent placement. The patient has a history of hypertension, hyperlipidemia, type 2 diabetes, osteoarthritis, gastroesophageal reflux disease, who presented with symptoms of right pyelonephritis and right hydronephrosis. The patient had significant worsening of her renal function up to 1.3 which has improved 0.7 today. Her white blood cell count is 13 from 17 yesterday. The patient has been voiding without issue. The patient continued to have some nausea and has vomited, with fatigued. Uncertain if this is related to underlying infection and continue to recover. The patient is having a cough and she is concerned she may have the flu. The patient had temperature up to 100 this morning, which is her T-max for the past 24 hours. Clinically, she looks stable. We will continue to monitor from a urologic standpoint. We will continue Levaquin. We will treat her for at least 2 weeks with oral antibiotics. Could transition her from intravenous to oral antibiotics in preparation for possible discharge in the coming days. We will continue to monitor. Please call with questions or concerns. cc: Rudi Acosta MD [facility]
[2019-08-31] MEDS: ZOFRAN IV PRN (10:07)
[2019-08-31] MEDS: PRILOSEC PO SCH (10:10)
[2019-08-31] MEDS: GRALISE PO SCH ×3 (10:10→22:00)
[2019-08-31] MEDS: DITROPAN PO SCH (10:10)
[2019-08-31] MEDS: ASPIRIN PO SCH (10:10)
[2019-08-31] MEDS: PERIDEX MT SCH ×2 (10:12→22:00)
[2019-08-31] MEDS: LANTUS INSULIN SUBQ SCH ×3 (11:03→22:08)
[2019-08-31] MEDS: MIRALAX PO SCH (11:15)
[2019-08-31] MEDS: LEVAQUIN 500 MG/D5W 500 MG/100 ML IVPB IV SCH (12:10)
--- NOTE | 2019-08-31 18:26 | PROGRESS NOTE ---
DATE: 08/31/2019 SUBJECTIVE: She looks a little bit better today. She is still very nauseous, but she is not having any abdominal pain, well, that is not entirely true. She is not having any emesis. OBJECTIVE: Blood pressure was 156/90. She had a small temp of a 100 degrees at 6 and at noon.Cardiovascular: Regular rate and rhythm. Pulmonary: Bilateral breath sounds diminished at the bases. GI: Soft, nontender, nondistended. Bowel sounds are positive. LABORATORY DATA: Really was unremarkable. I do not think she has a white count or at least it is coming down. White count is down to 13. Hemoglobin and hematocrit is 12 and 38, platelets of 199,000. Basic was normal. Sugars are okay. Laboratory data as described. PROBLEM LIST: 1. Hydronephrosis without stone. She is status post stent and seems to be doing okay. 2. Acute kidney injury. Her creatinine is better today. She had a little bit of a bump and that is better. Her sodium is better as well. She has an E coli that is sensitive to most things including Keflex. She is currently on Levaquin, but she is just not tolerating it very well. Her abdominal complaints are persistent. 3. Hyponatremia. That seems to be better. 4. Fever. May be related to her kidney infection. We will continue to monitor. 5. Diabetes. Appears to be stable. I am going to bump up her Prilosec and kind of see how she is doing. Get plain films, but she seems to be a little bit better today than she was yesterday. cc: Pepe Martinez MD
--- NOTE | 2019-08-31 18:29 | Diag Imaging Result Doc PS360 ---
EXAM: ABDOMEN FLAT/UPRIGHT INDICATION: pain TECHNIQUE: 3 views COMPARISON: 06/02/2018 FINDINGS: There is a large amount of stool seen throughout the colon suggesting severe constipation. There is no obstructive bowel pattern. There is no evidence of large volume free abdominal gas. A right ureteral stent is noted in the expected position. IMPRESSION: Suggestion of severe constipation. Electronically signed by Derek Valladares 08/31/2019 6:27 PM
[2019-08-31 18:50] LABS: AGAP 12; ALB/GLOB RATIO 1.3; ALBUMIN 3.3 g/dL (3.5-5.0); ALKALINE PHOSPHATASE 73 U/L (32-104); BUN 8 mg/dL (8-22); CALCIUM 8.5 mg/dL (8.8-10.2); CHLORIDE 94 mmol/L (98-107); COSMO 268; CREATININE 0.7 mg/dL (0.5-0.9); ESTIMATED GFR > 60; GLUCOSE 256 mg/dL (70-104); GOT 16 U/L (10-30); GPT 11 U/L (10-36); POTASSIUM 4.3 mmol/L (3.5-5.1); SODIUM 130 mmol/L (136-145); TCO2 24 mmol/L (25-35); TOTAL PROTEIN 5.9 g/dL (6.3-8.3)
[2019-08-31] MEDS: ZOCOR PO SCH (22:00)
[2019-08-31] MEDS: LOVENOX SUBQ SCH (22:01)
[2019-09-01] MEDS: NS 1,000 ML IV SCH (05:29)
[2019-09-01] MEDS: REGLAN IV SCH ×2 (05:56→14:18)
[2019-09-01] MEDS: HUMALOG SUBQ SCH ×4 (06:03→14:18)
[2019-09-01] MEDS ORDERED: PRILOSEC PO SCH (07:00)
[2019-09-01 07:03] LABS: BASO# 0.03 X1000 (0.0-0.2); BASO% 0.3 % (0.0-0.8); EOS# 0.08 X1000 (0.0-0.7); EOS% 0.9 % (0.0-10.0); IMM GRAN# 0.02 X1000 (0.0-0.04); IMM GRAN% 0.2 % (0.0-0.5); LYMPH# 2.37 X1000 (1.2-3.4); LYMPH% 25.6 % (20.5-51.1); MCH 28.9 PG (27-31); MCHC 32.4 g/dL (33-37); MCV 89.2 FL (81-99); MONO% 11.9 % (1.7-9.3); MPV 11.6 FL (7.4-10.4); NEUT# 5.65 X1000 (1.4-6.5); NEUT% 61.1 % (42.2-75.2); PLT 177 X1000 (130-400); RBC 4.15 XMIL (4.2-5.4); RDW 12.2 % (11.5-14.5); WBC 9.25 X1000 (4.8-10.8)
[2019-09-01 07:52] VITALS: BP 152/94
--- NOTE | 2019-09-01 07:55 | Diag Imaging Result Doc PS360 ---
EXAM: RETROGRADES 2 OR 3 FILMS 08/29/2019 HISTORY: RT STENT PLACEMENT TECHNIQUE: 17 images COMMENT: Bilateral retrograde pyelography was performed. There was apparently a filling defect in the distal right ureter. A stent was placed on the right. IMPRESSION: Apparent filling defect in the distal right ureter, presumably responsible for the obstruction seen on the CT of 08/28/2019. Electronically signed by Kleber Loyola 09/01/2019 7:52 AM
[2019-09-01] MEDS: GRALISE PO SCH (08:52)
[2019-09-01] MEDS: DITROPAN PO SCH (08:53)
[2019-09-01] MEDS: ASPIRIN PO SCH (08:53)
[2019-09-01] MEDS: MIRALAX PO SCH (08:55)
[2019-09-01] MEDS: LANTUS INSULIN SUBQ SCH (08:55)
[2019-09-01] MEDS: PERIDEX MT SCH (08:55)
[2019-09-01] MEDS: LEVAQUIN 500 MG/D5W 500 MG/100 ML IVPB IV SCH (14:17)
[2019-09-01] MEDS ORDERED: NEURONTIN PO SCH (14:30)
[2019-09-01] MEDS ORDERED: LEVAQUIN PO ONE (14:35)
[2019-09-01] MEDS ORDERED: MIRALAX PO SCH (14:45)
[2019-09-01] MEDS ORDERED: REGLAN PO SCH (16:00)
--- NOTE | 2019-09-17 11:03 | DISCHARGE SUMMARY ---
ADMISSION DATE: 08/29/2019 DISCHARGE DATE: 09/01/2019 DISCHARGE DIAGNOSES: 1. Hydronephrosis. 2. Acute kidney injury. 3. Hyponatremia. 4. Type 2 diabetes. ADMISSION DIAGNOSES: 1. Escherichia coli urinary tract infection. 2. Type 2 diabetes. 3. Hyponatremia. CONSULTATIONS: Dr. Acosta, urology. PROCEDURES: Cystoscopy with stent placement. HOSPITAL COURSE: Briefly, this is a 59-year-old female presenting essentially with pain and flank pain. She was placed on antibiotics, IV fluids. Urology was consulted and they proceeded to do a cystoscopy on the with a right ureteral stent placed. She had a little bit of a slow postop course because she just was not eating very well but there was no sulema stone noted during the procedure. She did grow out Escherichia coli from UTI that was somewhat resistant but, in any case, she became afebrile. She was doing well on the and felt stable for discharge. DISCHARGE MEDICATIONS: Benadryl, acetaminophen, Ditropan 10 daily, gabapentin 600 t.i.d., Lantus 45 b.i.d., lisinopril 10 daily, NovoLog 25 a.c., Prilosec 20 daily, simvastatin 40 at bedtime, aspirin 81 daily, Levaquin 500 daily for 10 days, [place] t.i.d. p.r.n. pain 7.5, and Zofran 4 q.6 p.r.n. nausea. DISCHARGE CONDITION: Stable. TIME SPENT: A 32 minute discharge. cc: MD Rudi Baugh MD Lindsay E. Smith, MD
== END 2019-09-01 17:22 | disposition home or self-care (01) | DRG 659 ==
LOC: SUPCPDRO → 4N 11:18 → ED 11:18
PROVIDERS: ATTEND Internal Medicine